=== PATIENT | male | born 1980 | race Two or more races ===

== ENCOUNTER 2019-07-16 16:38 | Emergency (ER) | payer OTHER ==
[~2019-07-16] VITALS: Ht 185.4 cm; Wt 77.1 kg
--- NOTE | 2019-07-16 16:36 | NUR ---
ED Nurse Note: PT walked in to ED for C/O cough, SOB, Runny nose x 3 days. pt reports his roommate tested positive for COVID 19 3 days ago
[2019-07-16 16:37] VITALS: BP 124/84
--- NOTE | 2019-07-16 16:46 | Emergency Room Report ---
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 Patient appears to be afebrile. Denies any recent travel and shortness of breath. Vital signs are within normal limits. Patient is sitting comfortably with stable vital signs. Has not taken medication for symptom relief. Has not been returning to work since the onset of symptoms. COVID-19 risk:Contact w/high r: Yes COVID-19 risk:Travel to affect: No Has patient experienced pérez: No Coronavirus symptoms experienc: Cough, Runny Nose, Flu-Like Symptoms Allergies: Coded Allergies: No Known Allergies (Unverified , 07/16/19) Patient History Past Medical History: see triage record Past Surgical History: none Pertinent Family History: none Immunizations: UTD Reviewed Nursing Documentation: PMH: Agreed; PSxH: Agreed Nursing Documentation-PMH Past Medical History: No Stated History Review of Systems All Other Systems: negative except mentioned in HPI Physical Exam Vital Signs Date Time Temp Pulse Resp B/P (MAP) Pulse Ox O2 Delivery O2 Flow Rate FiO2 07/16/19 16:33 97.5 07/16/19 16:33 85 18 124/84 (97) 97 Room Air Sp02 EP Interpretation: reviewed, normal General Appearance: no apparent distress, alert, GCS 15, non-toxic Head: normocephalic, atraumatic Eyes: bilateral eye normal inspection, bilateral eye PERRL ENT: hearing grossly normal, normal pharynx, no angioedema, normal voice Neck: full range of motion, supple/symm/no masses Respiratory: chest non-tender, lungs clear, normal breath sounds, no rhonchi, no retraction, no wheezing, speaking full sentences Cardiovascular #1: regular rate, rhythm, no edema, no murmur Gastrointestinal: normal bowel sounds, non tender, soft, non-distended, no guarding, no rebound Rectal: deferred Genitourinary: no CVA tenderness Musculoskeletal: back normal Neurologic: alert, motor strength/tone normal, oriented x3, sensory intact, responsive, speech normal Psychiatric: judgement/insight normal, memory normal, mood/affect normal, no suicidal/homicidal ideation Skin: no rash Lymphatic: no adenopathy Medical Decision Making PA Attestation All my diagnosis and treatment plans were reviewed ad discussed with my supervising physician Dr. 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 Patient appears to be afebrile. Denies any recent travel and shortness of breath. Vital signs are within normal limits. Patient is sitting comfortably with stable vital signs. Has not taken medication for symptom relief. Has not been returning to work since the onset of symptoms. Ddx considered but are not limited to: Coronavirus, strep pharyngitis, URI, tonsillitis, peritonsillar abscess, influneza Vital signs: are WNL, pt. is afebrile H&PE are most consistent with: Exposure to coronavirus ORDERS: Guaifenesin, Tylenol ED INTERVENTIONS: None required at this time. DISCHARGE: At this time pt. is stable for d/c to home. Will provide printed patient care instructions, and any necessary prescriptions. Care plan and follow up instructions have been discussed with the patient prior to discharge. Take medication as directed, follow-up with your primary doctor, you need to stay home for self quarantine due to Covid 19 precautions for 14 days Last Vital Signs Date Time Temp Pulse Resp B/P (MAP) Pulse Ox O2 Delivery O2 Flow Rate FiO2 07/16/19 16:37 85 18 Room Air 07/16/19 16:37 97.5 124/84 97 Disposition: HOME, SELF-CARE Condition: Stable Scripts Guaifenesin* (GUAIFENESIN*) 100 Mg/5 Ml Liquid 15 ML ORAL Q8H, #120 ML 0 Refills Prov: Nasir Galeano 07/16/19 Acetaminophen* (TYLENOL EXTRA STRENGTH*) 500 Mg Tablet 500 MG ORAL Q8H PRN for Prn Headache/Temp > 101, #30 TAB 0 Refills Prov: Nasir Galeano 07/16/19 Patient Instructions: Upper Respiratory Infection, Adult Additional Instructions: Take medication as directed, follow-up with your primary doctor, you need to stay home for self quarantine due to Covid 19 precautions for 14 days Nasir Galeano Jul 16, 2019 16:46
[2019-07-16] MEDS ORDERED: TYLENOL EXTRA500 MG ORAL (16:47)
[2019-07-16] MEDS ORDERED: GUAIFENESI100 MG/5 M ORAL (16:47)
--- NOTE | 2019-07-16 17:00 | NUR ---
ED Nurse Note: COVID swab sent to lab
[2019-07-16 17:11] VITALS: BP 128/80
--- NOTE | 2019-07-16 17:11 | NUR ---
ER DISCHARGE NOTE: Patient is cleared to be discharged per ERMD, pt is aox4, on room air, with stable vital signs. pt was given dc and prescription instructions, pt was able to verbalize understanding, pt id band removed without complications. pt is able to ambulate with steady gait. pt took all belongings.
== END 2019-07-16 17:11 | disposition home or self-care (01) ==
LOC: EDBD 16:38 → EMR 17:00
DX: R05 Cough (principal); Z20.828 Contact with and (suspected) exposure to other viral communicable diseases
CPT/HCPCS: 99282